=== PATIENT | female | born 1960 | race Caucasian/White ===

== ENCOUNTER 2016-10-11 00:06 | Emergency (ER) | payer BC ==
[2016-10-11 00:12] VITALS: BP 178/94; BMI 42.7
--- NOTE | 2016-10-11 00:41 | DR.GENAD ---
HPI - PCP Primary Care Physician: LENNIE - HPI Comment HPI Comment: As below; radiates toward the left shoulder; similar episode unrelated to this situation resulted in a benign cath about six years ago; she has also had a negative treadmill since then per Dr Ball; she denies cp/sob with exertion prior to today; no palpitations. - Complaint/Symptoms Chief Complaint:: PT C/O SOB and chest discomfort for the last 30 minutes after having sex - Source History Provided: Patient - Mode of Arrival Mode of Arrival: Ambulatory - Timing Onset of Chief Complaint: 10/10/16 PMH - PMH Past Medical History: Yes Past Medical History: Coronary Artery Disease, Depression, Hypertension Past Surgical History: Yes Surgical History: Cholecystectomy, [employer] Surgery, Hysterectomy, Tonsillectomy - Family History History of Family Medical Conditions: No - Social History Does any household member use tobacco: No Alcohol Use: None Do you use any recreational Drugs:: No Lives With: Family Lives Where: Home - infectious screening In the last 2 months have you had wt loss of >10#?: NO Have you had fever, night sweats or hemotysis?: No Have you traveled outside the country in the last 6 months?: No Isolation: Standard ROS - Review of Systems Constitutional: No Symptoms Reported Respiratoy: Dry Cough (started today) Cardiovascular: See HPI Gastrointestinal/Abdominal: Nausea Neurological: No Symptoms Reported Musculoskeletal: No Symptoms Reported Integumentary: No Symptoms Reported PE - Vital Signs Vitals: Temperature 98.8 F Pulse Rate 99 Respiratory Rate 22 Blood Pressure 178/94 O2 Sat by Pulse Oximetry 97 - General Limitations: No Limitations, Language Barrier General Appearance: Alert, In No Apparent Distress - Head Head Exam: Normal Inspection - Neck Neck Exam: Normal Inspection - Chest Chest Inspection: Normal Inspection - Respiratory Respiratory Exam: Normal Lung Sounds Bilat - Cardiovascular Cardiovascular Exam: Regular Rate - Extremities Extremities Exam: Other (no edema) Course - Reevaluation 1st: Improved 2nd: Resolved ROR - Labs Reviewed Result Diagrams: 10/11/16 00:30 10/11/16 00:30 Laboratory: WBC 8.6 X10^3/uL (3.6-10.0) 10/11/16 00:30 RBC 5.21 X10^6/uL (3.5-5.4) 10/11/16 00:30 Hgb 14.1 g/dL (12.0-16.0) 10/11/16 00:30 Hct 42.1 % (36.0-47.0) 10/11/16 00:30 MCV 80.7 fL (80.0-100.0) 10/11/16 00:30 MCH 27.1 pg (27.0-34.0) 10/11/16 00:30 MCHC 33.6 g/dL (33.0-35.0) 10/11/16 00: RDW 14.7 % (11.6-16.5) 10/11/16 00:30 Plt Count 208 X10^3/uL (150.0-450.0) 10/11/16 00:30 MPV 8.3 fL (7.4-11.0) 10/11/16 00:30 Neut % 64.0 % (42.0-75.0) 10/11/16 00:30 Lymph % 27.4 % (21.0-51.0) 10/11/16 00:30 [place] % 3.8 % (0.0-13.0) 10/11/16 00:30 Eos % 3.6 % (0.9-2.9) H 10/11/16 00:30 Baso % 1.2 % (0.2-1.0) H 10/11/16 00:30 Neut # 5.5 x10^3/uL (2.2-4.8) H 10/11/16 00:30 Lymph # 2.4 X10^3/uL (1.3-2.9) 10/11/16 00:30 [place] # 0.3 x10^3/uL (0.3-0.8) 10/11/16 00:30 Eos # 0.3 x10^3/uL (0.0-0.2) H 10/11/16 00:30 Baso # 0.1 X10^3/uL (0.0-0.1) 10/11/16 00:30 Absolute Nucleated RBC 0.0 /100WBC 10/11/16 00:30 Sodium 145 mmol/L (136-145) 10/11/16 00:30 Corrected Sodium 147 mmol/L (136-145) H 10/11/16 00:30 Potassium 3.6 mmol/L (3.5-5.1) 10/11/16 00:30 Chloride 106 mmol/L (98-107) 10/11/16 00:30 Carbon Dioxide 31.2 mmol/L (21-32) 10/11/16 00:30 BUN 12 mg/dL (7-18) 10/11/16 00:30 Creatinine 0.97 mg/dL (0.55-1.02) 10/11/16 00:30 Est GFR (MDRD) Af Amer > 60 (>60) 10/11/16 00:30 Est GFR (MDRD) Non-Af > 60 (>60) 10/11/16 00:30 Glucose 195 mg/dL (65-99) H 10/11/16 00:30 Calcium 8.4 mg/dL (8.5-10.1) L 10/11/16 00:30 Corrected Calcium 9.0 mg/dL (8.5-10.1) 10/11/16 00:30 Total Bilirubin 0.50 mg/dL (0.2-1.0) 10/11/16 00:30 AST 20 Units/L (15-37) 10/11/16 00:30 ALT 39 Units/L (12-78) 10/11/16 00:30 Alkaline Phosphatase 58 Units/L (46-116) 10/11/16 00:30 Creatine Kinase 108 Units/L (26-192) 10/11/16 00:30 CK-MB (CK-2) 1.6 ng/mL (0-4.0) 10/11/16 00:30 CK/CKMB % Calc 1.5 % (<4) 10/11/16 00:30 Troponin I 0.03 ng/mL (0-1.5) 10/11/16 00:30 Total Protein 6.5 g/dL (6.4-8.2) 10/11/16 00:30 Albumin 3.2 g/dL (3.4-5.0) L 10/11/16 00:30 Globulin 3.3 g/dL (2.5-4.5) 10/11/16 00:30 Albumin/Globulin Ratio 1.0 Ratio (1.1-2.1) L 10/11/16 00:30 - EKG Block: LBBB (old per pt) - Diagnosis Discharge Problem: Chest pain Qualifiers: Chest pain type: other chest pain Qualified Code(s): R07.89 - Other chest pain Hypertension Qualifiers: Hypertension type: essential hypertension Qualified Code(s): I10 - Essential ( primary) hypertension - Discharge Plan Disposition: 01 HOME, SELF-CARE Condition: Stable Prescriptions: Nitroglycerin Sublingual [NITROSTAT SUBLING TAB 0.4 MG *] 0.4 mg SL PRN PRN #25 tab PRN Reason: Angina (Chest Pain) - Follow ups/Referrals Follow ups/Referrals: ELLI HOGUE [Primary Care Provider] - 3 days - Instructions Instructions: Chest Pain Observation Additional Instructions: follow up with Dr Quinn reddy
[2016-10-11] MEDS ORDERED: MORPHINE SULFATE INJ 4 MG IM ONE (00:43)
[2016-10-11] MEDS ORDERED: ZOFRAN INJ 4 MG VIAL IM ONE (00:43)
[2016-10-11 00:45] LABS: BASOPHILS # (AUTO) 0.1 X10^3/uL (0.0-0.1); BASOPHILS % (AUTO) 1.2 % (0.2-1.0); EOSINOPHILS # (AUTO) 0.3 x10^3/uL (0.0-0.2); EOSINOPHILS % (AUTO) 3.6 % (0.9-2.9); HEMATOCRIT 42.1 % (36.0-47.0); HEMOGLOBIN 14.1 g/dL (12.0-16.0); LYMPHOCYTES # (AUTO) 2.4 X10^3/uL (1.3-2.9); LYMPHOCYTES % (AUTO) 27.4 % (21.0-51.0); MEAN CORPUSCULAR HEMOGLOBIN 27.1 pg (27.0-34.0); MEAN CORPUSCULAR HGB CONC 33.6 g/dL (33.0-35.0); MEAN CORPUSCULAR VOLUME 80.7 fL (80.0-100.0); MEAN PLATELET VOLUME 8.3 fL (7.4-11.0); MONOCYTES # (AUTO) 0.3 x10^3/uL (0.3-0.8); MONOCYTES % (AUTO) 3.8 % (0.0-13.0); NEUTROPHILS # (AUTO) 5.5 x10^3/uL (2.2-4.8); PLATELET COUNT 208 X10^3/uL (150.0-450.0); RED BLOOD COUNT 5.21 X10^6/uL (3.5-5.4); RED CELL DISTRIBUTION WIDTH 14.7 % (11.6-16.5); WHITE BLOOD COUNT 8.6 X10^3/uL (3.6-10.0)
--- NOTE | 2016-10-11 00:56 | RAD ---
Chest PA and lateral Indication: Chest pain. Comparison: April 10, 2010 Findings: There is no pneumothorax, effusion or consolidation. Heart size is prominent. Impression: Borderline cardiomegaly without other acute abnormality. Reported By:
[2016-10-11 01:00] LABS: BLOOD UREA NITROGEN 12 mg/dL (7-18); CALCIUM 8.4 mg/dL (8.5-10.1); CARBON DIOXIDE 31.2 mmol/L (21-32); CHLORIDE 106 mmol/L (98-107); COR NA(FOR HYPERGLY) 147 mmol/L (136-145); CREATININE 0.97 mg/dL (0.55-1.02); GLUCOSE 195 mg/dL (65-99); SODIUM 145 mmol/L (136-145); TROPONIN I 0.03 ng/mL (0-1.5); eGFR BLACK RACES > 60 (>60); eGFR NON BLACK RACES > 60 (>60)
[2016-10-11] MEDS ORDERED: ZOFRAN INJ 4 MG VIAL ONE (01:01)
[2016-10-11] MEDS ORDERED: MORPHINE SULFATE INJ 2 MG ONE (01:01)
[2016-10-11 01:05] LABS: ALANINE AMINOTRANSFERASE 39 Units/L (12-78); ALBUMIN 3.2 g/dL (3.4-5.0); ALKALINE PHOSPHATASE 58 Units/L (46-116); ASPARTATE AMINO TRANSFERASE 20 Units/L (15-37); CKMB % 1.5 % (<4); CREATINE KINASE 108 Units/L (26-192); CREATINE KINASE MB 1.6 ng/mL (0-4.0); TOTAL PROTEIN 6.5 g/dL (6.4-8.2)
== END 2016-10-11 01:25 | disposition home or self-care (01) ==
LOC: ER 00:06
DX: R07.89 Other chest pain (principal); I10 Essential (primary) hypertension
CPT/HCPCS: 36415; 71020; 80053; 82550; 82553; 84484; 85025; 93005; 93010; 99283; J2270; J2405

== ENCOUNTER 2017-10-09 20:36 | Emergency (ER) | payer BC ==
[2017-10-09 20:43] VITALS: BMI 43.5
--- NOTE | 2017-10-09 21:06 | DR.GENAD ---
HPI - Complaint/Symptoms Chief Complaint Doctors Comments: This is described as a soreness. She is s/p cholecystectomy by hx. She has nausea but no vomitting. There is no radiatio. Onset was 2 days ago. There is no exacerbating or relieving factor. Chief Complaint:: C/O RUQ PAIN NAUSEA - Nurses notes reviewed Nurses Notes Review: Yes - Source History Provided: Patient - Mode of Arrival Mode of Arrival: Ambulatory - Timing Onset of Chief Complaint: 10/07/17 PMH - PMH Past Medical History: Yes Past Medical History: Coronary Artery Disease, Depression, Hypertension Past Surgical History: Yes Surgical History: Cholecystectomy, [employer] Surgery, Hysterectomy, Tonsillectomy - Family History History of Family Medical Conditions: Yes Family Medical History: Hypertension - Social History Does any household member use tobacco: No Do you use any recreational Drugs:: No Lives With: Family Lives Where: Home - infectious screening In the last 2 months have you had wt loss of >10#?: NO Have you had fever, night sweats or hemotysis?: No Have you traveled outside the country in the last 6 months?: No Isolation: Standard ROS - Review of Systems Constitutional: No Symptoms Reported ENTM: No Symptoms Reported Respiratoy: No Symptoms Reported Cardiovascular: No Symptoms Reported Gastrointestinal/Abdominal: Abdominal Pain (RUQ), Nausea Genitourinary: No Symptoms Reported Neurological: No Symptoms Reported Musculoskeletal: No Symptoms Reported Integumentary: No Symptoms Reported Hematologic/Lymphatic: No Symptoms Reported Endocrine: No Symptoms Reported Psychiatric: No Symptoms Reported All Other Systems: Reviewed and Negative PE - Vital Signs Vitals: Temperature 99 F Pulse Rate 72 Respiratory Rate 18 Blood Pressure 149/70 O2 Sat by Pulse Oximetry 100 - General Limitations: No Limitations General Appearance: Alert, In No Apparent Distress - Head Head Exam: Normal Inspection - Eyes Eye exam: Normal Appearance - ENT ENT Exam: Normal Exam - Neck Neck Exam: Normal Inspection - Chest Chest Inspection: Normal Inspection - Respiratory Respiratory Exam: Normal Lung Sounds Bilat - Cardiovascular Cardiovascular Exam: Regular Rate, Normal Rhythm, +S1, +S2 - Abdominal Exam Abdominal Exam: Normal Inspection, Normal Bowel Sounds, Tenderness Abdominal Tenderness: RUQ - Extremities Extremities Exam: Normal Inspection - Back Back Exam: Normal Inspection - Neurologic Neurological Exam: Alert, Oriented X3 - Psychiatric Psychiatric Exam: Normal Affect, Normal Mood - Skin Skin Exam: Warm, Dry, Intact, Normal Color Course - Reevaluation 1st: Unchanged 2nd: Unchanged (she declined pharmacologic agents for symptom control (nausea of pain).) - Education/Counseling Education/Counseling: Patient, Family, Education, Counseling Educated On: Treatment, Diagnosis, Prognosis, Needs for Follow Up ROR - Labs Reviewed Result Diagrams: 10/09/17 21:12 10/09/17 21:12 Laboratory: WBC 13.8 X10^3/uL (3.6-10.0) H 10/09/17 21:12 RBC 5.36 X10^6/uL (3.5-5.4) 10/09/17 21:12 Hgb 14.9 g/dL (12.0-16.0) 10/09/17 21:12 Hct 43.9 % (36.0-47.0) 10/09/17 21:12 MCV 81.7 fL (80.0-100.0) 10/09/17 21:12 MCH 27.8 pg (27.0-34.0) 10/09/17 21:12 MCHC 34.0 g/dL (33.0-35.0) 10/09/17 21:12 RDW 14.6 % (11.6-16.5) 10/09/17 21:12 Plt Count 218 X10^3/uL (150.0-450.0) 10/09/17 21:12 Plt Count Comment Adequate (ADEQUATE) 10/09/17 21:12 MPV 8.3 fL (7.4-11.0) 10/09/17 21:12 Neut % (Auto) 67.3 % (42.0-75.0) 10/09/17 21:12 Lymph % (Auto) 22.8 % (21.0-51.0) 10/09/17 21:12 [place] % (Auto) 6.0 % (0.0-13.0) 10/09/17 21:12 Eos % (Auto) 3.1 % (0.9-2.9) H 10/09/17 21:12 Baso % (Auto) 0.8 % (0.2-1.0) 10/09/17 21:12 Neut # (Auto) 9.3 x10^3/uL (2.2-4.8) H 10/09/17 21:12 Lymph # (Auto) 3.2 X10^3/uL (1.3-2.9) H 10/09/17 21:12 [place] # (Auto) 0.8 x10^3/uL (0.3-0.8) 10/09/17 21:12 Eos # (Auto) 0.4 x10^3/uL (0.0-0.2) H 10/09/17 21:12 Baso # (Auto) 0.1 X10^3/uL (0.0-0.1) 10/09/17 21:12 Absolute Nucleated RBC 0.1 /100WBC 10/09/17 21:12 Plt Morphology Comment Normal (NORMAL) 10/09/17 21:12 RBC Morphology Normal (NORMAL) 10/09/17 21:12 Sodium 141 mmol/L (136-145) 10/09/17 21:12 Corrected Sodium 142 mmol/L (136-145) 10/09/17 21:12 Potassium 4.2 mmol/L (3.5-5.1) 10/09/17 21:12 Chloride 103 mmol/L (98-107) 10/09/17 21:12 Carbon Dioxide 31.1 mmol/L (21-32) 10/09/17 21:12 BUN 15 mg/dL (7-18) 10/09/17 21:12 Creatinine 0.89 mg/dL (0.55-1.02) 10/09/17 21:12 Est GFR (MDRD) Af Amer > 60 (>60) 10/09/17 21:12 Est GFR (MDRD) Non-Af > 60 (>60) 10/09/17 21:12 Glucose 157 mg/dL (65-99) H 10/09/17 21:12 Calcium 7.9 mg/dL (8.5-10.1) L 10/09/17 21:12 Corrected Calcium TNP 10/09/17 21:12 Total Bilirubin 0.50 mg/dL (0.2-1.0) 10/09/17 21:12 AST 29 Units/L (15-37) 10/09/17 21:12 ALT 30 Units/L (12-78) 10/09/17 21:12 Alkaline Phosphatase 64 Units/L (46-116) 10/09/17 21:12 Total Protein 7.2 g/dL (6.4-8.2) 10/09/17 21:12 Albumin 3.5 g/dL (3.4-5.0) 10/09/17 21:12 Globulin 3.7 g/dL (2.5-4.5) 10/09/17 21:12 Albumin/Globulin Ratio 0.9 Ratio (1.1-2.1) L 10/09/17 21:12 Amylase 49 Units/L (25-115) 10/09/17 21:12 Lipase 104 Units/L (73-393) 10/09/17 21:12 Specimen Type Clean catch urine 10/09/17 21:20 Urine Color Yellow (YELLOW) 10/09/17 21:20 Urine Appearance Clear (CLEAR) 10/09/17 21:20 Urine pH 6.0 (5.0 - 8.0) 10/09/17 21:20 Ur Specific [place] 1.015 (1.000-1.030) 10/09/17 21:20 Urine Protein Negative (NEGATIVE) 10/09/17 21:20 Urine Glucose (UA) Negative (NEGATIVE) 10/09/17 21:20 Urine Ketones Negative (NEGATIVE) 10/09/17 21:20 Urine Occult Blood Negative (NEGATIVE) 10/09/17 21:20 Urine Nitrite Negative (NEGATIVE) 10/09/17 21:20 Urine Bilirubin Negative (NEGATIVE) 10/09/17 21:20 Urine Urobilinogen Normal (NORMAL) 10/09/17 21:20 Ur Leukocyte Esterase Negative (NEGATIVE) 10/09/17 21:20 - XRAY XRAY Interpreted by: Radiologist (no acute abnormality to explain pt's. symptoms. indeterminate b/l adrenal nodules- likey adrenal adenomas.) - Diagnosis Discharge Problem: Upper abdominal pain of unknown etiology, Adrenal nodule - Discharge Plan Disposition: 01 HOME, SELF-CARE Condition: Stable - Follow ups/Referrals Follow ups/Referrals: ELLI HOGUE [Primary Care Provider] - 3 days - Instructions Instructions: Abdominal Pain, Adult, [id number]
[2017-10-09 21:22] LABS: BASOPHILS # (AUTO) 0.1 X10^3/uL (0.0-0.1); BASOPHILS % (AUTO) 0.8 % (0.2-1.0); EOSINOPHILS # (AUTO) 0.4 x10^3/uL (0.0-0.2); EOSINOPHILS % (AUTO) 3.1 % (0.9-2.9); HEMATOCRIT 43.9 % (36.0-47.0); HEMOGLOBIN 14.9 g/dL (12.0-16.0); LYMPHOCYTES # (AUTO) 3.2 X10^3/uL (1.3-2.9); LYMPHOCYTES % (AUTO) 22.8 % (21.0-51.0); MEAN CORPUSCULAR HEMOGLOBIN 27.8 pg (27.0-34.0); MEAN CORPUSCULAR VOLUME 81.7 fL (80.0-100.0); MEAN PLATELET VOLUME 8.3 fL (7.4-11.0); MONOCYTES # (AUTO) 0.8 x10^3/uL (0.3-0.8); NEUTROPHILS # (AUTO) 9.3 x10^3/uL (2.2-4.8); NEUTROPHILS % (AUTO) 67.3 % (42.0-75.0); PLATELET COUNT 218 X10^3/uL (150.0-450.0); RED BLOOD COUNT 5.36 X10^6/uL (3.5-5.4); RED CELL DISTRIBUTION WIDTH 14.6 % (11.6-16.5); WHITE BLOOD COUNT 13.8 X10^3/uL (3.6-10.0)
[2017-10-09 21:27] LABS: BILIRUBIN,URINE NEGATIVE (NEGATIVE); BLOOD/HEMOGLOBIN,URINE NEGATIVE (NEGATIVE); GLUCOSE, URINE NEGATIVE (NEGATIVE); KETONES,URINE NEGATIVE (NEGATIVE); LEUKOCYTE ESTERASE ,URINE NEGATIVE (NEGATIVE); NITRITES,URINE NEGATIVE (NEGATIVE); PROTEIN,URINE NEGATIVE (NEGATIVE); UROBILINOGEN,URINE NORMAL (NORMAL)
[2017-10-09 21:31] LABS: ALANINE AMINOTRANSFERASE 30 Units/L (12-78); ALBUMIN 3.5 g/dL (3.4-5.0); ALKALINE PHOSPHATASE 64 Units/L (46-116); AMYLASE 49 Units/L (25-115); ASPARTATE AMINO TRANSFERASE 29 Units/L (15-37); BLOOD UREA NITROGEN 15 mg/dL (7-18); CALCIUM 7.9 mg/dL (8.5-10.1); CARBON DIOXIDE 31.1 mmol/L (21-32); CHLORIDE 103 mmol/L (98-107); COR NA(FOR HYPERGLY) 142 mmol/L (136-145); CREATININE 0.89 mg/dL (0.55-1.02); LIPASE 104 Units/L (73-393); SODIUM 141 mmol/L (136-145); TOTAL PROTEIN 7.2 g/dL (6.4-8.2); eGFR BLACK RACES > 60 (>60); eGFR NON BLACK RACES > 60 (>60)
[2017-10-09 21:32] LABS: PLATELET MORPHOLOGY COMMENT NORMAL (NORMAL)
[2017-10-09 21:35] LABS: APPEARANCE,URINE CLEAR (CLEAR); COLOR,URINE YELLOW (YELLOW)
--- NOTE | 2017-10-09 22:24 | CT ---
CT abdomen and pelvis without contrast Indication: Right upper quadrant pain with nausea Technique: Helical CT images of the abdomen and pelvis were obtained without IV contrast. Reformatted images in the coronal and sagittal planes were also generated for review. Comparison: None Findings: Lung bases are clear. No aggressive osseous lesions are identified. The gallbladder is surgically absent. Within the limits of a noncontrast exam, the liver, spleen and pancreas are unremarkable. There are indeterminate bilateral adrenal nodules, which measure approxima tely 1.2 cm on the right and 1 cm on the left. Both kidneys and visualized ureters are normal without radiopaque stones or hydroureteronephrosis. There is no bowel inflammation or obstruction. The appendix is normal. The abdominal aorta is minimal ly calcified without aneurysm. A small fat containing umbilical hernia is noted. The urinary bladder is normal without stones. The uterus is not identified and is likely absent. No free air, significant free fluid or bulky lymphadenopathy is identified. Impression: No acute abnormality identified to explain patient's symptoms, within the limitations of a noncontras t exam. Indeterminate bilateral adrenal nodules, which likely represent lipid poor adrenal adenomas. If indic ated, consider nonemergent adrenal CT protocol for further evaluation. Mild vascular calcifications and additional incidental findings, as above. Reported By:
[2017-10-09 23:40] VITALS: BP 142/76
== END 2017-10-09 23:05 | disposition home or self-care (01) ==
LOC: ER 20:36
DX: E27.9 Disorder of adrenal gland, unspecified (principal); R10.11 Right upper quadrant pain; Z90.49 Acquired absence of other specified parts of digestive tract
CPT/HCPCS: 36415; 74176; 80053; 81003; 82150; 83690; 85025; 99282; 99284